=== PATIENT | female | born 1950 | race Caucasian/White ===

== ENCOUNTER 2021-06-20 11:15 | Outpatient (CLI) | payer MEDICARE, BC, SELFPAY ==
--- NOTE | 2021-06-20 11:00 | DI.RAD_ITS ---
Exam(s) XR KNEE RT 4V AP,LAT,IRMA,PAT EXAM: XR KNEE RT 4V AP,LAT,IRMA,PAT CLINICAL HISTORY: pain TECHNIQUE: COMPARISON: No exams were available for comparison FINDINGS: Four views were obtained. There is moderate narrowing of the lateral tibiofemoral cartilaginous join t space. There is also mild narrowing of the cartilaginous joint space of patellofemoral joint later ally. There are mild marginal osteophytes involving all 3 joints of the knee. No other significant bony or soft tissue abnormality seen. IMPRESSION: DJD predominantly involving lateral tibiofemoral joint. RADIATION DOSE DELIVERED: Total DLP
--- OUTSIDE RECORDS SUMMARY | 2021-06-20 11:17 | XMS_ITS ---
:1950 Author Care Team Providers Name Role Phone EMILI SALINAS Primary Care Provider [phone] Allergies Code Code System Name Reaction Severity Status Onset 439663 RxNorm House Dust Cough Mild to Active ? Moderate Tree and Eye Redness Mild to Active ? Shrub Pollen Moderate NKDA ? Medications Name Status Start Date Stop Date ? ? Allergy Active ? Not available twice a day Calcium with Vitamin D 500 mg-200 unit tablet Active ? Not available Take 1 tablet twice a day by oral route. famotidine 20 mg tablet Active ? Not avai lable TAKE ONE TABLET BY MOUTH TWICE A DAY Glucosamine Chondroitin Active ? Not avai lable two tablet twice a day ibuprofen 200 mg tablet Active ? Not avai lable Take 1 tablet every day by oral route. melatonin Active ? Not available 5mg, 1 tab po at HS Notes: medications reconciled Problems Name Status Onset Date Source ? Hyperlipidemia Active ? History Not for Resuscitation Active ? History Adult Health Examination Active ? History Gynecologic Examination Active ? History Screening Mammography Active ? History Pain in Right Knee Active ? History Procedures Date Name Performed by ? 02/12/2017 Colonoscopy Information not avai lable 04/13/1965 Knee Surgery Information not avai lable Notes: L knee tibial tub. transplant 09/15/2017 MAMMO, Screening, Digital, Bilateral [facility] Radiology (Internal) [address] [place] [address] (Work Place) 09/29/2017 MAMMO, Screening, Tomosynthesis, [facility] Rad[facility] (Internal) Bilateral [address] [place] [address] (Work Place) 04/19/2018 MAMMO, Screening, Tomosynthesis, [facility] (Internal) Bilateral [address] [place] [address] (Work Place) 05/06/2018 XR, Knee, 4 or More View [facility] Rad[facility] (Internal) [address] [place], [place] [id number] (Work Place) 04/25/2019 DEXA, Axial Skeleton [facility] (Internal) [address] [place], [place] [id number] (Work Place) 04/25/2019 MAMMO, Screening, Tomosynthesis, [facility] (Internal) Bilateral [address] [place], [place] [id number] (Work Place) 04/27/2020 MAMMO, Screening, Tomosynthesis, [facility] (Internal) Bilateral [address] [place], [place] [id number] (Work Place) 05/07/2021 MAMMO, Screening, Tomosynthesis, [facility] (Internal) Bilateral [address] [place], [place] [id number] (Work Place) 05/07/2021 [facility] [address] [place], [place] [id number] (Work Place) Results Lab Results Date Name Specimen Result Interpretation Description Value Range Status Address ? 05/10/2019 Lipid Panel, S High Chol 214 mg/dL 50-200 [place] [place] Serum mg/dL [facility] (Internal) : [address] ? ? S ? Trig 135 mg/dL 10-150 Final [place] mg/dL [facility] (Internal) : [address] ? ? S ? Hdl 40 mg/dL 40-60 Final [place] mg/dL [facility] (Internal) : [address] ? ? S High Ldl 147 mg/dL 0-130 Final [place] mg/dL [facility] (Internal) : [address] 05/10/2019 CMP, Serum or S ? g/r 90 mg/dL 74-106 [place] [place] Plasma mg/dL [facility] (Internal) : [address] ? ? S ? Bun 15 mg/dL 7-17 Final [place] mg/dL [facility] (Internal) : [address], [place] ? ? S ? Crea 0.70 mg/dL 0.52-1. Final [facility] 04 Country mg/dL Hospital [facility] (Internal) : [address] ? ? S ? Ca 9.0 mg/dL 8.4-10. Final [facility] 2 mg/dL [facility] : [address] ? ? S ? Na 142 mmol/L 137-145 Final [facility] mmol/L [facility] ([facility] : [address] ? ? S ? K 4.1 mmol/L 3.5-5.1 Final [facility] mmol/L [facility] ([facility] : [address] ? ? S ? Cl 105 mmol/L 98-107 Final [facility] mmol/L [facility] ([facility] : [address] ? ? S High Tco2 31.0 mmol/L 22.0-30 Final Nort h .0 [facility] mmol/L Hospital L [facility] (Internal) : [address] ? ? S ? Tp 6.8 g/dL 6.3-8.2 Final [facility] g/dL [facility] ([facility] : [address] ? ? S ? Alb 3.7 g/dL 3.5-5.0 Final [facility] g/dL [facility] ([facility] : [address] ? ? S ? Tbil 0.8 mg/dL 0.2-1.3 Final [facility] mg/dL [facility] ([facility] : [address] ? ? S ? Alp 93 U/L 38-126 Final [facility] U/L [facility] (Internal[facility] : [address] ? ? S ? Alt 27 U/L 9-52 Final [facility] (Sgpt) U/L [facility] (Internal) : [address] ? ? S ? Ast 23 U/L 14-36 Final [place] (Sgot) U/L [facility] (Internal[facility] : [address] 04/25/2019 Fecal Occult ? Occult negative ? ? P_nc Primary Blood X 3, Blood 1 Care Stool [place]: [address], [place] ? ? ? Occult negative ? ? P_nc Pr imary Blood 2 Care [place]: [address], [place] ? ? ? Occult negative ? ? P_nc Pr imary Blood 3 Care [place]: [address], [place] 04/25/2019 Urinalysis, ? Color Yellow ? ? P _nc Primary Dipstick, Care Reflex Micro [place]: [address], [place] ? ? ? Appearanc Clear ? ? P_nc P rimary e Care [place] [facility]: [address], [place] ? ? ? Glucose Normal ? ? P_nc Katiana genevieve Care [place] [facility]: [address], [place] ? ? ? Bilirubin Negative ? ? P_nc Primary Care [place] [facility]: [address], [place] ? ? ? Ketones Negative ? ? P_nc P rimary Care [place] [facility]: [address], [place] ? ? ? Specific 1.020 ? ? P_nc Pr imary [place] [facility] [place] [facility]: [address], [place] ? ? ? Blood Trace ? ? P_nc Prima ry Care [place] [place] [facility]: [address], [place] ? ? ? Ph 6.5 ? ? P_nc Prima ry Care [place]: [address], [place] ? ? ? Protein Negative ? ? P_nc P rimary Care [place] [place] [facility]: [address], [place] ? ? ? Urobilino 0.2 ? ? P_nc P rimary gen Care [place] [facility]: [address], [place] ? ? ? Nitrite negative ? ? P_nc P rimary Care [place] [facility]: [address], [place] ? ? ? Leukocyte Negative ? ? P_nc Primary Esterase Care [place]: [address], [place] 04/17/2017 Pap Test, MISC ? Hpv see report ? Final [facility] (Internal) : [address] ? ? MISC ? Pap see report ? Final [facility] (Internal) : [address] ? ? MISC ? Report (added) ? Corrected [facility] results [facility] (Internal[facility] : [address] 04/10/2017 CMP, Serum or S ? g/r 100 mg/dL 74-106 Fin al [place] Plasma mg/dL [facility] ([facility] : [address] ? ? S High Bun 20 mg/dL 7-17 Final [facility] mg/dL [facility] : [address] ? ? S ? Crea 0.80 mg/dL 0.52-1. Final North 04 [facility] mg/dL Hospital [facility] (Internal) : [address] ? ? S ? Ca 8.8 mg/dL 8.4-10. Final North 2 mg/dL [facility] ([facility] : [address] ? ? S ? Na 141 mmol/L 137-145 Final [facility] mmol/L [facility] ([facility] : [address] ? ? S ? K 4.2 mmol/L 3.5-5.1 Final [facility] mmol/L [facility] ([facility] : [address] ? ? S ? Cl 107 mmol/L 98-107 Final [facility] mmol/L [facility] ([facility] : [address] ? ? S ? Tco2 28.0 mmol/L 22.0-30 Final Nort h .0 [facility] mmol/L Hospital [facility] (Internal) : [address] ? ? S ? Tp 6.9 g/dL 6.3-8.2 Final [facility] g/dL [facility] (Internal[facility] : [address] ? ? S ? Alb 3.9 g/dL 3.5-5.0 Final [facility] g/dL [facility] ([facility] : [address] ? ? S ? Tbil 0.6 mg/dL 0.2-1.3 Final [facility] mg/dL [facility] ([facility] : [address] ? ? S ? Alp 93 U/L 38-126 Final [facility] U/L [facility] : [address] ? ? S ? Alt 38 U/L 9-52 Final [facility] (Sgpt) U/L [facility] (Internal) : [address] ? ? S ? Ast 30 U/L 14-36 Final [place] (Sgot) U/L [facility] (Internal) : [address] 04/10/2017 Lipid Panel, S High Chol 229 mg/dL 50-200 [facility] [place] Serum mg/dL [facility] ([facility] : [address] ? ? S ? Trig 87 mg/dL 10-150 Final [place] mg/dL [facility] (Internal) : [address] ? ? S ? Hdl 57 mg/dL 40-60 Final [place] mg/dL [facility] (Internal) : [address] ? ? S High Ldl 155 mg/dL 0-130 Final [place] mg/dL [facility] (Internal) : [address] ? Venipuncture ? Location Left ? ? P _nc Primary Antecubital Care [place] [facility]: [address], [place] ? ? ? Needle 21g ? ? P_nc Prim alivia Vacutainer Care [place] [facility]: [address], [place] ? ? ? Number of 1 ? ? P_nc P rimary Attempts Care [place] [facility]: [address], [place] ? ? ? Successfu Yes ? ? P_nc P rimary l Care [place] [facility]: [address], [place] ? ? ? Dressing Pressure ? ? P_nc Primary Band-aid Care Applied [place]: [address], [place] ? ? ? Initials hj ? ? P_nc Pr imary Care [place] [facility]: [address], [place] ? Urinalysis, ? Color Yellow ? ? P_nc Primary Dipstick, Care Reflex Micro [place]: [address], [place] ? ? ? Appearanc Clear ? ? P_nc P rimary e Care [place] [facility]: [address], [place] ? ? ? Glucose Normal ? ? P_nc Katiana genevieve Care [place] [facility]: [address], [place] ? ? ? Bilirubin Negative ? ? P_nc Primary Care [place] [facility]: [address], [place] ? ? ? Ketones Negative ? ? P_nc P rimary Care [place]: [address], [place] ? ? ? Specific 1.030 ? ? P_nc Pr imary [place] Care [place] [facility]: [address], [place] ? ? ? Blood Negative ? ? P_nc Katiana genevieve Care [place] [facility] [facility]: [address], [place] ? ? ? Ph 5.5 ? ? P_nc Prima ry Care [place] [facility]: [address], [place] ? ? ? Protein Negative ? ? P_nc P rimary Care [place] [facility]: [address], [place] ? ? ? Urobilino 0.2 ? ? P_nc P rimary gen Care [place] [facility]: [address], [place] ? ? ? Nitrite negative ? ? P_nc P rimary Care [place] [facility] [facility]: [address], [place] ? ? ? Leukocyte Negative ? ? P_nc Primary Esterase Care [place] [facility]: [address], [place] ? Visual ? R Eye 20/20 ? ? P_nc Prima ry Acuity* Corrected Care [place] [facility]: [address], [place] ? ? ? L Eye 20/20 ? ? P_nc Prima ry Corrected Care [place] [facility]: [address], [place] Past Encounters 05/07/2021 Adult Health Examination; Pain of Right Knee Joint; Essential Tremor; Gastroesophageal Reflux Disease Emili Salinas, AGRICULTURAL EDUCATION PROFESSOR: [address] [place] [address], Ph. 04/27/2020 Adult Health Examination; Heartburn; Emir ign Paroxysmal Positional Vertigo Emili Salinas, AGRICULTURAL EDUCATION PROFESSOR: [address] [place] [phone], Ph. Social History Tobacco Smoking Status Never Smoker Vaccine List Vaccine Type COVID-19, mRNA, LNP-S, PF, 100 mcg/0.5 m L dose (Moderna) 06/22/2020 07/20/2020 02/10/2021 influenza, high dose seasonal 01/11/2018 influenza, high-dose, quadrivalent 01/21/2020 03/25/2021 influenza, seasonal, injectable 03/29/2009 02/11/2010 influenza, seasonal, injectable, preserv ative free 02/08/2008 01/15/2011?0.5 mL influenza, trivalent, adjuvanted 01/04/2019?0.5 mL pneumococcal conjugate PCV 13 12/05/2016?0.5 mL pneumococcal polysaccharide PPV23 04/25/2019?0.5 mL rubella Tdap 11/16/2008 12/22/2018?0.5 mL tetanus toxoid, adsorbed 04/13/2002 zoster live 06/05/2016 Plan of Care Reminders Provider Appointments None ? ? recorded. Lab None ? ? recorded. Referral None ? ? recorded. Procedures None ? ? recorded. Surgeries None ? ? recorded. Imaging None ? ? recorded. Vitals 05/07/2021 08:00AM AWV 40 Height Weight BMI Blood Pressure 160.02 cm 81.85 kg 32 kg/m2 112/68 mm[Hg] 04/27/2020 09:20AM AWV 40 Height Weight BMI Blood Pressure 160.02 cm 80.91 kg 31.6 kg/m2 104/62 mm[Hg] 05/10/2019 09:00AM Nurse 20 Height 160.02 cm 04/25/2019 11:00AM AWV 40 Height Weight BMI Blood Pressure 160.02 cm 81.19 kg 31.7 kg/m2 112/64 mm[Hg] 01/04/2019 03:20PM Same Day 20 Height Weight BMI Blood Pressure 160.02 cm 78.93 kg 30.8 kg/m2 102/66 mm[Hg] 05/27/2018 08:30AM Follow Up 15 Height Blood Pressure 160.02 cm 110/76 mm[Hg] 05/06/2018 08:30AM Consult 30 Height Weight BMI 160.02 cm 78.97 kg 30.8 kg/m2 04/19/2018 11:00AM AWV 40 Weight Blood Pressure 79.38 kg 102/80 mm[Hg] 04/17/2017 Height Weight Blood Pressure 159.38 cm 79.38 kg 128/84 mm[Hg] 12/05/2016 Height Weight Blood Pressure 160.66 cm 79.38 kg 100/78 mm[Hg] 10/30/2015 Height Weight Blood Pressure 160.66 cm 78.7 kg 112/70 mm[Hg] 06/28/2013 Height Weight Blood Pressure 160.02 cm 68.13 kg 114/72 mm[Hg] 06/24/2012 Height Weight Blood Pressure 160.02 cm 69.63 kg 108/70 mm[Hg] 06/21/2012 Height Weight Blood Pressure 160.02 cm 69.63 kg 112/68 mm[Hg] 06/03/2011 Blood Pressure 102/60 mm[Hg] 06/03/2011 Weight 78.47 kg 05/01/2011 Height Weight Blood Pressure 160.02 cm 75.98 kg 104/60 mm[Hg] 04/09/2010 Height Weight Blood Pressure 160.02 cm 76.88 kg 102/62 mm[Hg] 02/08/2009 Height Weight Blood Pressure 161.29 cm 74.39 kg 98/60 mm[Hg] 02/08/2008 Height Weight Blood Pressure 160.02 cm 69.85 kg 94/62 mm[Hg] 06/04/2007 Height Weight 162.56 cm 70.31 kg 09/11/2006 Height Weight Blood Pressure 162.56 cm 66.68 kg 96/72 mm[Hg] 09/10/2005 Height Weight Blood Pressure 162.56 cm 68.04 kg 94/60 mm[Hg] 09/06/2004 Height Weight Blood Pressure 162.56 cm 65.32 kg 108/68 mm[Hg]
--- OUTSIDE RECORDS SUMMARY | 2021-06-20 11:17 | XMS_ITS | Encounter Summary ---
:1950 Author Care Team Providers Name Role Phone Emili Salinas Primary Care Provider [phone] Reason for Visit Medicare annual wellness visit- female Assessment and Plan 1. Adult health examination Medicare annual wellness exam with only minor cognitive deficits ,no increased risk for falls, depression or identified needs. Total skin exam with no concerning findings and clinical breast exam with no concerns. Mammogram ordered. DEXA 2019 stable. Never smoked so does n ot warrant lung cancer screening. Colonoscopy 2016 without concerns and low risk so on ly needs every 10 year screening.. Pap 2 year ago normal and does not warrant further screening. Advised regular aerobic exercise and weight management. ? MAMMO, screening, tomosynt hesis, bilateral 2. Pain of right knee joint Increased knee pain on exertio n. Will repeat imaging and refer to Ortho since pain limiting ability to exercise ? XR, knee, 3 view ? orthopedic surgeon referra l - right knee pain with going up and down hills and on exertion. 3. Essential tremor mild intermittent tremor. Not suggestive for parkinsons. If progresses consider may benefit beta radhames. 4. Gastroesophageal reflux disea se continue famotidine. would rosie efit from weight loss. ? famotidine 20 mg tablet Discussion Note: None recorded.Patient educational handouts: No information available. Plan of Care Reminders Provider Appointments Awv 40 on or around Trung De La Paz 05/07/2022 ADA Salinas ? Return to on or around Jose Alfredo Odell MD Office 02/12/2027 Lab None ? ? recorded. Referral Orthopedic 05/07/2021 Kenyatta Green Surgeon Referral Procedures None ? ? recorded. Surgeries None ? ? recorded. Imaging MAMMO, 05/07/2021 [facility] Screening, Hospital Radiolo gy Tomosynthesis, (Internal) Bilateral ? XR, Knee, 3 05/07/2021 [facility] Radiolo gy (Internal) Medications Name Start Date ? ? Allergy ? twice a day Calcium with Vitamin D 500 mg-200 unit tablet ? Take 1 tablet twice a day by oral route. famotidine 20 mg tablet ? TAKE ONE TABLET BY MOUTH TWICE A DAY Glucosamine Chondroitin ? two tablet twice a day ibuprofen 200 mg tablet ? Take 1 tablet every day by oral route. melatonin ? 5mg, 1 tab po at HS Notes: medications reconciled Medications Administered None recorded. Vitals Height Weight BMI Blood Pressure 5 ft 3 in 180 lbs 7 oz 32 kg/m2 112/68 mm[Hg] Results Lab Results None recorded. Allergies Code Code System Name Reaction Severity Onset 668472 RxNorm House Dust Cough Mild to Moderate ? Tree and Shrub Eye Redness Mild to Moderate ? Pollen NKDA ? ? ? Problems Name Status Onset Date Source ? 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 Are you currently employed? N Are you blind or do you have N Notes: w ears glasses difficulty seeing? Do you have smoke and carbon Y monoxide detectors in your home? What is your code status? Full Code In the 14 days before symptom N onset, have you had close contact with a person who is under investigation for COVID-19 while that person was ill? What was the date of your most 05/07/2021 recent tobacco screening? Do you or have you ever used Never used electronic e-cigarettes or vape? cigarettes Do you have an advanced N directive? Do you use any illicit or N recreational drugs? What is your exercise level? Occasional In the 14 days before symptom N onset, have you had close contact with a laboratory-confirmed COVID-19 while that case was ill? Live alone or with others? alone Notes: mom passed 2018 What is your level of alcohol Occasional consumption? Which of your hands is dominant? Right Animal exposure? N Live alone or with others? alone Do you have any pets? N Do you or have you ever used Never used smokeless tobacco smokeless tobacco? Have you been to an area known Y Notes: [facility] to be high risk for COVID-19? Language Difficulties No Are you deaf or do you have N serious difficulty hearing? Are you passively exposed to N smoke? Hard of hearing or deaf in one N or both ears? What is your level of caffeine Moderate Notes: 20 oz diet coke consumption? per day, no coffee. Have you recently traveled N abroad? Are there any guns present in N your home? What is your occupation? retired Functional Status No Impairment. Past Encounters 05/07/2021 Adult Health Examination; Pain of Right Knee Joint; Essential Tremor; Gastroesophageal Reflux Disease Emili Salinas [employer] INSTRUCTOR: [address] [place] [address], Ph. History of Present Illness ? Medicare Annual Wellness Vis it_ Reported By: Patient Social/Behavioral History: Diet and Nutrition: healthy diet. Fracture Risk: no history of fractures, no rec ent explained fracture, no sudden unexplained fractures , no previous musculoskeletal injuries. Physical Activity: exercises on a regular basis; usually does something outsi de daily Mental Status:: Depression Risk: never feels sad, empty, or tearful, no loss of interest in activiti es, no significant changes in weight, no sleep disturbance s or insomnia, no agitation, no loss of energy, no feelin gs of worthlessness or guilt, no thoughts of suicide, no h istory of depression, no history of mood disorders. O rientation: no disorientation to time, no disorientation t o date, no disorientation to place. Concentration and Mem ory: no decreased concentrating ability, no me joe lapses or loss, forgetting words. Speech/Mot or difficulties: no speech difficulties, no difficulty expressing formulated concepts, no difficulty with fine manipulative tasks, no difficulty writing/copying, no slowed reaction time, does not knock things over when t rying to pick them up Functional Ability: Hearing: no loss of hearing. Vision: no vision problems; wears glasses. Has an appoin tment in 05/2021. Activities of Daily Living: able to bathe with limited or no assistance, able to contol urination and bowels, able to dress with limited or no assistance, ab le to feed self with limited or no assistance, able to ge t out of chair or bed with limited or no assistance, ab le to groom with limited or no assistance, able to toilet w ith limited or no assistance. Instrumental Activities of D aily Living: able to do house work with limited or no assi stance, able to grocery shop with limited or no assistanc e, able to manage medications with limited or no assistanc e, able to manage money with limited or no assistance, ab le to prepare meals with limited or no assistance, ab le to use the phone with limited or no assistance. Fa lls Risk Assessment: no frequent falls while walking , no fall in the past year, no fall since last visit, no di zziness/vertigo. Home Safety: reviewed sun protection, no unsafe stairs, no unsafe gas appliances, working smoke/CO detectors, use of seatbelts, no vision or hearing loss wh ile driving, no fire arms, has hand bars in the bathroom/ ower, good lighting in the home Notes: <p>
</p> Note: <p>70 yo female due for Medicare Annual Wellness Visit. </p>Review of Systems: ROS as noted in the [facility] Review of Systems ? Comprehensive General Adult ROS Reported By: Patient Constitutional: Constitutional: no fever, no night sweats, no significant weight gain, no significant weight loss, no exercise intolerance, no chills, no m alaise Eyes: Eyes: no dry eyes, no vision change, no irritation, no eye disease/injury ENMT: Ears: no difficulty hearing, no ear pain. Nose: no frequent nosebleeds, no nose problems , no sinus problems. Mouth/Throat: no sore throat, no bleeding gums, no snoring, no dry mouth, no mouth ulcers, no oral abnorm alities, no teeth problems, no ringing in the ears, no sinu sitis Cardiovascular: Cardiovascular: no chest sulema n, no arm pain on exertion, no shortness of breath when wal kristy, no shortness of breath when lying down, no palpitations, no known heart murmur, no ankle swelling Respiratory: Respiratory: no cough, no wh eezing, no shortness of breath, no coughing up blood, no sleep apnea Gastrointestinal: Gastrointestinal: no abdomin al pain, no nausea, no vomiting, no constipation, normal appe tite, no diarrhea, not vomiting blood, no dyspepsia, GERD Genitourinary: Genitourinary: no incontinen ce, no difficulty urinating, no hematuria, no increased freq uency Musculoskeletal: Musculoskeletal: no muscle a ches, no muscle weakness, no back pain, no swelling in the ext remities, no neck pain, no difficulty walking, no cramp s, no osteoporosis, no fractures, arthralgias/joint pain Integumentary: Skin: no abnormal mole, no j aundice, no rashes, no laceration, no non-healing areas, no ac nges in hair/nails, no psoriasis, no change in skin color, no breast lump Neurologic: Neurologic: no loss of consc iousness, no weakness, no numbness, no seizures, no di zziness, no migraines, no headaches, no tremor, no gai t dysfunction, no paralysis Psychiatric: Psych: no depression, feelin g safe in a relationship, no alcohol abuse, no anxiety, n o hallucinations, no suicidal thoughts, no mood swings, no memory loss, no agitation, no dementia, no delirium, sleep disturbances Endocrine: Endocrine: no fatigue Hematologic/Lymphatic: Hematologic/Lymphatic no swo llen glands, no bruising, no excessive bleeding, no anemi a, no phlebitis Allergic/Immunologic: Allergy/Immunologic: no runn y nose, no sinus pressure, no itching, no hives, no freque nt sneezing Physical Exam ? General Adult Exam (female) Reported By: Patient Constitutional: General Appearance: healthy- appearing, well-developed, overweight. Level of Distress: NAD. Ambu lation: ambulating normally Psychiatric: Insight: good judgement. Men nat Status: active and alert, normal mood, normal affect. Orienta tion: to time, to place, to person. Memory: recent memory normal , remote memory normal; mini cog with only 1 word remembered and c lock drawing tests Head: Head: normocephalic, atrauma tic Eyes: Lids and Conjunctivae: non-i njected, no discharge, no pallor. Pupils: PERRLA. Corneas: tonya ssly intact. Fundoscopic: grossly normal except where noted, n ormal optic discs, normal vessels, no exudates, no hemorrhages. EO M: EOMI. Lens: clear. Sclerae: non-icteric. Vision: periphe ral vision grossly intact, acuity grossly intact ENMT: Ears: no lesions on external ear, EACs clear, TMs clear. Hearing: no hearing loss. Nose: no si nus tenderness; limited exam with covid precautions. Lips, Teeth, an d Gums: ; limited exam with covid precautions. Oropharynx: ; l imited exam with covid precautions Neck: Neck: supple, trachea midlin e, no masses, FROM. Lymph Nodes: no cervical LAD, no supraclavic ular LAD, no axillary LAD, no inguinal LAD. Thyroid: no enlargement , non-tender, no nodules Lungs: Respiratory effort: no dyspn ea. Auscultation: breath sounds normal, good air movement, CTA excep t as noted, no wheezing, no rales/crackles, no rhonchi Cardiovascular: Apical Impulse: not displace d. Heart Auscultation: RRR, normal S1, normal S2, no murmurs, no ru bs, no gallops. Neck vessels: no carotid bruits. Pulses inclu ding femoral / pedal: normal throughout Breast: Breast: normal appearance, n o masses, no abnormal secretions Abdomen: Bowel Sounds: normal. Inspec tion and Palpation: soft, non-distended, no tenderness , no guarding, no rebound tenderness, no masses, no CVA tenderness . Liver: non-tender, no hepatomegaly. Spleen: non-tender, no splen omegaly. Hernia: none palpable Female : Female Exam: patient defe rred exam. Adnexae: no adnexal mass, no adnexal tenderness Rectal: Anus, Perineum, Rectum: norm al tone, no hemorrhoids, no fissures, no masses Musculoskeletal:: Motor Strength and Tone: nor mal motor strength, normal tone. Joints, Bones, and Muscles: normal movement of all extremities, no bony abnormalities, no contr actures, no malalignment, no tenderness. Extremities: no cyanosis, no edema, no varicosities, no palpable cord Neurologic: Gait and Station: normal gai t, normal station. Cranial Nerves: grossly intact. Sensation: g rossly intact. Reflexes: DTRs 2+ bilaterally throughout. Coor dination and Cerebellum: [id number] intact, no tremor Skin: Inspection and palpation: no rash, no lesions, no ulcer, no abnormal nevi, no induration , no nodules, good turgor, no jaundice; few seborrheic keratotic les ions back and shoulders. Nails: normal Back: Thoracolumbar Appearance: no rmal curvature
== END 2021-06-20 11:16 | disposition home or self-care (01) ==
LOC: DIORS 11:16
PROVIDERS: PCP Nurse Practitioner Family; Visit Provider Student in an Organized Health Care Education/Training Program
DX: M25.561 Pain in right knee; M17.11 Unilateral primary osteoarthritis, right knee; M17.12 Unilateral primary osteoarthritis, left knee; M25.562 Pain in left knee
CPT/HCPCS: 20610; 99203; 73564; J1040

== ENCOUNTER 2021-09-16 17:19 | Outpatient (REF) | payer MEDICARE, BC, SELFPAY | END 2021-09-16 17:20 | disposition home or self-care (01) | LOC: LBN 17:19 | PROVIDERS: PCP Nurse Practitioner Family; Visit Provider Physician Assistant | DX: J02.9 Acute pharyngitis, unspecified (principal) | CPT/HCPCS: 87070 ==